=== PATIENT | female | born 1960 | race Caucasian/White ===

== ENCOUNTER 2021-11-23 15:29 | Emergency (ER) | payer MEDICARE, OTHER ==
[~2021-11-23] VITALS: Ht 170.2 cm; Wt 102.2 kg
[~2021-11-23 15:29] MED LIST: CLARITIN10 M2 PO; COUMADIN5 MG PO; CYCLOBENZAPRINE10 MG PO; CYMBALTA20 MG PO; GABAPENTIN600 MG PO; IBUPROFEN600 MG PO; LIPITOR10 MG PO; LOVENOX100 MG SUB-Q; METFORMIN HCL850 MG PO; MULTI VITAMIN1 EACH PO; NORCO 7.5-3251 EACH PO; VITAMIN D22000 UNIT PO; VITAMIN D250000 UNIT PO; WELLBUTRIN SR200 MG PO; ZOLPIDEM TARTRA10 MG PO
--- OUTSIDE RECORDS SUMMARY | 2021-11-23 15:32 | XMS ---
PreManage Notification: ISMA PAREDES Security Manager Animal Events No recent Security Events currently on file CR[facility]IA MET [facility] There are no care providers on record at this time. Care Guidelines exist for the following facilities: [facility] ( 05/04/2019 ) Juan VISIT COUNT (12 MO.) [address] [facility] TOTAL 1 NOTE: Visits indicate total known visits. ED/UCC VISIT TRACKING (12 MO.) 11/23/2021 15:30 [facility] [place] TYPE: Emergency COMPLAINT: - R HIP PAIN INPATIENT VISIT TRACKING (12 MO.) No inpatient visits to display in this time frame [id number]
[2021-11-23] MEDS ORDERED: OXYCONTIN20 MG PO (17:22)
== END 2021-11-23 19:00 | disposition home or self-care (01) ==
LOC: ED 15:29
DX: G89.28 Other chronic postprocedural pain (principal); Z96.641 Presence of right artificial hip joint; E11.9 Type 2 diabetes mellitus without complications; Z87.891 Personal history of nicotine dependence; Z79.899 Other long term (current) drug therapy; Z79.84 Long term (current) use of oral hypoglycemic drugs
CPT/HCPCS: 73552; 99283-25